=== PATIENT | female | born 1975 | race Caucasian/White ===

== ENCOUNTER 2023-04-15 02:35 | Emergency (ER) | payer BC ==
[2023-04-15] MEDS ORDERED: ALBUTEROL 2.5 MG/3 ML NEB SOL ONE (03:37)
--- NOTE | 2023-04-15 04:27 | EDPHYS ---
Physician Documentation [facility] Name: Angely Vickers Age: 47 yrs Sex: Female : 1975 Arrival Date: 04/15/2023 Time: 02:35 Bed 7 Private MD: ED Physician Iván Powell HPI: 04/15 03:33 This 47 yrs old Female presents to ER via Ambulatory with complaints of Painful Cough, rt Chest Congestion, Fever. 03:33 Patient presents to the ED with cough, congestion, fevers and sore throat since rt Sunday. Went to an urgent care, was told she had strep, was not tested for flu. Was given Toradol, Decadron at that time with modest relief. Was taking penicillin for these presumed strep throat. States the cough has worsened. Denies other acute complaints at this time, symptoms are moderate in severity, no other aggravating alleviating factors. Patient states that the coughing is worse at night, worse when she takes a deep breath.. 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 Last tetanus immunization: not immunized. - Social history:: Smoking status: Patient denies any tobacco usage or history of. - Family history:: not pertinent. ROS: 03:33 Cardiovascular: Negative for chest pain, palpitations, and edema, Abdomen/GI: Negative rt for abdominal pain, nausea, vomiting, diarrhea, and constipation, Skin: Negative for injury, rash, and discoloration, Neuro: Negative for headache, weakness, numbness, tingling, and seizure, Psych: Negative for depression, anxiety, suicide ideation, homicidal ideation, and hallucinations, 03:33 Constitutional: Positive for body aches, fever, 03:33 Respiratory: Positive for cough, Negative for shortness of breath, Exam: 03:33 Constitutional: This is a well developed, well nourished patient who is awake, alert, rt and in no acute distress. Head/Face: Normocephalic, atraumatic. Chest/axilla: Normal chest wall appearance and motion. Nontender with no deformity. No lesions are appreciated. Cardiovascular: Regular rate and rhythm with a normal S1 and S2. No gallops, murmurs, or rubs. Normal PMI, no JVD. No pulse deficits. Respiratory: Lungs have equal breath sounds bilaterally, clear to auscultation and percussion. No rales, rhonchi or wheezes noted. No increased work of breathing, no retractions or nasal flaring. Abdomen/GI: Soft, non-tender, with normal bowel sounds. No distension or tympany. No guarding or rebound. No evidence of tenderness throughout. Skin: Warm, dry with normal turgor. Normal color with no rashes, no lesions, and no evidence of cellulitis. MS/ Extremity: Pulses equal, no cyanosis. Neurovascular intact. Full, normal range of motion. Neuro: Awake and alert, GCS 15, oriented to person, place, time, and situation. Cranial nerves II-XII grossly intact. Motor strength 5/5 in all extremities. Sensory grossly intact. Cerebellar exam normal. Normal gait. Psych: Awake, alert, with orientation to person, place and time. Behavior, mood, and affect are within normal limits. 03:33 ECG was reviewed by the Attending Physician. Vital Signs: 02:56 BP 112 / 78; Pulse 97; Resp 20; Temp 100; Pulse Ox 98% ; Weight 47.17 kg; Height 5 ft. kb3 0 in. ; Pain 8/10; 04:49 BP 109 / 69; Pulse 84; Resp 16; Pulse Ox 99% on R/A; km8 02:56 Body Mass Index 20.31 (47.17 kg, 152.4 cm) kb3 02:56 Pain Scale: Adult kb3 MDM: 02:49 Patient medically screened. rt 04:26 Differential Diagnosis: Other Pneumonia, bronchospasm, influenza. Data reviewed: vital rt signs, nurses notes, lab test result(s), radiologic studies. Independent interpretation of the following test(s) in the Emergency Department X-Ray: My interpretation is No consolidation seen on interpretation of x-ray images. Test considered but Not performed: CT: Do not suspect pulmonary embolism, CT angiogram not indicated. Counseling: I had a detailed discussion with the patient and/or guardian regarding the historical points, exam findings, and any diagnostic results supporting the discharge/admit diagnosis, lab results, radiology results, the need for outpatient follow up, to return to the emergency department if symptoms worsen or persist or if there are any questions or concerns that arise at home. Response to treatment: the patient's symptoms have markedly improved after treatment. 04/15 03:07 Order name: Influenza Screen (a \T\ B); Complete Time: 03:59 rt 04/15 03:07 Order name: Chest Single View XRAY rt EC:33 Rate is 74 beats/min. Rhythm is regular, Normal Sinus Rhythm with Unifocal PVCs. QRS rt [place] is Normal. [place] interval is normal. QRS interval is normal. QT interval is normal. No Q waves. Administered Medications: 03:35 Drug: Albuterol Inhalation 2.5 mg Inhalation once Route: Inhalation; lg3 Disposition Summary: 04/15/23 04:25 Discharge Ordered Notes: Location: Home rt Problem: new rt Condition: Stable rt Diagnosis - Influenza B rt Followup: rt - With: Private Physician - When: 2 - 3 days - Reason: Discharge Instructions: - Discharge Summary Sheet rt - Influenza, Adult, [id number] rt Forms: - Medication Reconciliation Form rt - Thank You Letter rt - Antibiotic Education rt - Prescription Opioid Use rt - Patient Portal Instructions rt - Leadership Thank You Letter rt Signatures: Dispatcher [employer] Katelyn Anguiano, RN RN lg3 Gale Hackett, RN RN kb3 Iván Powell MD MD rt
--- NOTE | 2023-04-15 04:27 | ER ---
Nurse's Notes [facility] Name: Angely Vickers Age: 47 yrs Sex: Female : 1975 Arrival Date: 04/15/2023 Time: 02:35 Bed 7 Private MD: Diagnosis: Influenza B Presentation: 04/15 02:56 Chief complaint: Patient states: Cough, congestion, intermittent fever, sore throat kb3 since Sunday night. Was seen at an Urgent Care on Sun and diagnosed with strep throat. Started on steroids, cough medicine, and PCN. Pt reports she is not feeling much better and her cough has worsened. Coronavirus screen: Vaccine status: Patient reports being unvaccinated. Client denies travel out of the [place] in the last 14 days. Ebola Screen: Patient negative for fever greater than or equal to 101.5 degrees Fahrenheit, and additional compatible Ebola Virus Disease symptoms Patient denies exposure to infectious person. Patient denies travel to an Ebola-affected area in the 21 days before illness onset. Initial Sepsis Screen: Does the patient meet any 2 criteria? No. Patient's initial sepsis screen is negative. Does the patient have a suspected source of infection? No. Patient's initial sepsis screen is negative. Risk Assessment: Do you want to hurt yourself or someone else? Patient reports no desire to harm self or others. Onset of symptoms was April 10, 2023. 02:56 Method Of Arrival: Ambulatory kb3 02:56 Acuity: PANTERA 3 kb3 Triage Assessment: 03:03 General: Appears in no apparent distress. ill, Behavior is calm, cooperative. Pain: kb3 Complains of pain in head, chest, right arm, left arm, right leg and left leg Pain does not radiate. Pain currently is 8 out of 10 on a pain scale. Quality of pain is described as burning, aching. Respiratory: Reports shortness of breath cough that is pain with cough pain with respiration. GI: Patient currently denies abdominal pain, diarrhea, nausea, vomiting. 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 Last tetanus immunization: not immunized. - Social history:: Smoking status: Patient denies any tobacco usage or history of. - Family history:: not pertinent. Screenin:33 [facility] ED Fall Risk Assessment (Adult) History of falling in the last 3 months, lg3 including since admission No falls in past 3 months (0 pts). Abuse screen: Denies threats or abuse. Denies injuries from another. Nutritional screening: No deficits noted. Tuberculosis screening: No symptoms or risk factors identified. Assessment: 03:33 General: Appears in no apparent distress. uncomfortable, Behavior is calm, cooperative. lg3 Pain: Complains of pain in throat, generalized body aches. Neuro: No deficits noted. Lockett Agitation-Sedation Scale (RASS): 0 - Alert and Calm Level of Consciousness is awake, alert, obeys commands, Oriented to person, place, time, situation. Cardiovascular: No deficits noted. Denies chest pain, Capillary refill < 3 seconds Clubbing of nail beds is absent JVD is absent Patient's skin is warm and dry. Respiratory: Reports cough that is pain with cough Airway is patent Trachea midline Respiratory effort is even, unlabored, Respiratory pattern is regular, symmetrical. GI: No deficits noted. No signs and/or symptoms were reported involving the gastrointestinal system. Abdomen is flat, non-distended. : No deficits noted. No signs and/or symptoms were reported regarding the genitourinary system. EENT: No deficits noted. Reports nasal congestion nasal discharge. Derm: No deficits noted. No signs and/or symptoms reported regarding the dermatologic system. Skin is intact, is healthy with good turgor, Skin is dry, Skin is normal, Skin temperature is warm. Musculoskeletal: No deficits noted. Circulation, motion, and sensation intact. Range of motion: intact in all extremities. Vital Signs: 02:56 BP 112 / 78; Pulse 97; Resp 20; Temp 100; Pulse Ox 98% ; Weight 47.17 kg; Height 5 ft. kb3 0 in. ; Pain 8/10; 04:49 BP 109 / 69; Pulse 84; Resp 16; Pulse Ox 99% on R/A; km8 02:56 Body Mass Index 20.31 (47.17 kg, 152.4 cm) kb3 02:56 Pain Scale: Adult kb3 ED Course: 02:42 Patient arrived in ED. gm2 02:42 Iván Powell MD is Attending Physician. rt 03:03 Triage completed. kb3 03:03 Arm band placed on right wrist. Patient placed in an exam room, on a stretcher. kb3 03:33 Katelyn Curiel RN is Primary Nurse. lg3 03:33 Patient has correct armband on for positive identification. Placed in gown. Bed in low lg3 position. Call light in reach. Side rails up X 1. Client placed on continuous cardiac and pulse oximetry monitoring. NIBP monitoring applied. Door closed. Noise minimized. Warm blanket given. Family accompanied patient. 03:33 Initial Neb Treatment Given as ordered Patient was instructed and evaluated on lg3 procedure. Patient maintains SpO2 saturation greater than 95% on room air. 03:35 Influenza Screen (a \T\ B) Sent. lg3 04:10 Chest Single View XRAY In Process Unspecified. EDMS 04:42 Provided Education on: d/c teaching. km8 04:42 No provider procedures requiring assistance completed. km8 04:51 Patient did not have IV access during this emergency room visit. km8 Administered Medications: 03:35 Drug: Albuterol Inhalation 2.5 mg Inhalation once Route: Inhalation; lg3 Medication: 04:42 VIS not applicable for this client. km8 Outcome: 04:25 Discharge ordered by . rt 04:51 Discharged to home ambulatory, with significant other, km8 04:51 Condition: good 04:51 Discharge instructions given to patient, significant other, Instructed on discharge instructions, follow up and referral plans. medication usage, Demonstrated understanding of instructions, follow-up care, medications, Prescriptions given X 1, 04:52 Patient left the ED. km8 Signatures: Dispatcher [employer] EDAK Katelyn Curiel, RN GENESIS lg3 Gale Hackett RN RN 3 Iván Powell MD MD rt Mini Medina gm2 Zandra Nugent RN RN km8
[2023-04-15 05:00] VITALS: TEMP 100
[2023-04-15 05:02] VITALS: BP 109/69; O2SAT 99
--- NOTE | 2023-04-16 12:51 | RAD REPORT ---
EXAM DESCRIPTION: RAD - Chest Single View - 04/15/2023 4:08 am CLINICAL HISTORY: 47 years Female COUGH COMPARISON: None FINDINGS: Lung volumes adequate. Cardiac silhouette is normal in size. No pneumothorax. No large pleural effusion. No focal consolidation. No acute bony finding. Partially visualized lower cervical spine fusion hardware. IMPRESSION: No acute cardiopulmonary findings. Electronically signed by: Zen Alexander MD 04/15/2023 4:32 AM CDT Due to temporary technical issues with the PACS/Fluency reporting system, reports are being signed by the in house radiologists without review as a courtesy to insure prompt reporting. The interpreting radiologist is fully responsible for the content of the report.
== END 2023-04-15 04:52 | disposition home or self-care (01) ==
LOC: ER 02:35
DX: J10.1 Influenza due to other identified influenza virus with other respiratory manifestations (principal); Z28.310 Unvaccinated for COVID-19
CPT/HCPCS: 87804 ×2; 71045; 99284; J7613

== ENCOUNTER 2023-12-25 07:48 | Emergency (ER) | payer BC ==
--- OUTSIDE RECORDS SUMMARY | 2023-12-25 07:53 | XMS REPORT | Clinical Summary ---
Author Name Unknown Organization [facility] Address [address] [place] [address] Care Team Providers Care Tool Designer Apprentice Name Role Phone Romaine Lujan MD Unavailable Caitlyn Bolanos APRN Primary Care Provider [phone] Sarita Kay RN Unavailable [phone] Rubina Smith RN Unavailable [phone] Fausto Chandler MD Unavailable Allergies No known active allergies Medications Medication Sig Dispensed Refills Start Date End Date Status acetaminophen (TYLENOL 8 HOUR ORAL) Take by mouth as needed. Active ibuprofen (ADVIL,MOTRIN) 200 mg tablet Take 1 tablet (200 mg) by mouth as needed. Active diclofenac potassium (CATAFLAM) 50 MG tablet TAKE 1 TABLET BY MOUTH THREE TIMES DAILY NEEDED FOR PAIN 10/12/2023 Active ALPRAZolam (XANAX) 0.25 mg tabletIndications: anxiety Take 1 tablet (0.25 mg) by mouth once. Once before procedure. 10/21/2023 Discontinued( Other/Not Applicable) Active Problems Problem Noted Date Diagnosed Date Estrogen receptor negative status (ER-) 10/21/19 24 HER2-positive carcinoma of breast 10/18/2023 Lobular carcinoma, NOS of lo wer-outer quadrant of breast <Female; Left> Cancer Staging:Clinical stage from 09/20/2023:Stage IA(cT1b, cN0, cM0, G2, ER-, [place]-, HER2+) - Signed by Miriam Loera PA on 10/19/2023 Encounters Date Type Department Care Team Description 12/11/2023 9:00 AM CDT Office Visit [facility] - [facility] [address] [place] [address], [address] [place] [phone] Jennifer Estes MD Lobular carcinoma, NOS of lower-outer quadrant of breast <Female; Left>; HER2-positive carcinoma of breast 12/11/2023 Orders Only [facility] - Surgical Oncology [address] [place] [address], [address] [place] [address] Chun Orantes PA Lobular carcinoma, NOS of lower-outer quadrant of breast <Female; Left> (Primary Dx); Estrogen receptor negative status (ER-) 12/11/2023 Travel 12/10/2023 2:55 PM CDT Ancillary Procedure MD Vasquez [address] [id number] Chun Orantes PA Lobular carcinoma, NOS of lower-outer quadrant of breast <Female; Left> 12/10/2023 Travel 12/06/2023 11:59 PM CDT Anesthesia Event MAIN OR [address] [place] [id number] Jose Hancock III, MD 11/30/2023 1:03 AM CDT Anesthesia Event [facility] [address] [place] [address], [address] [place] [phone] Jey Wu APRN 11/29/2023 9:15 AM CDT POEM Appointments [facility] [address] [place] [address], [address] [place] [address] Chun Orantes PA Lobular carcinoma, NOS of lower-outer quadrant of breast <Female; Left>; HER2-positive carcinoma of breast 11/28/2023 Telephone [facility] - [facility] Oncology [address] [place] [address], [address] [place], [place] [address] [address] Chun Orantes PA 11/27/2023 Telephone [facility] - [facility] [address] [place], [place] [address] [address] Chun Orantes PA 11/21/2023 Orders Only [facility] - [facility]cology [address] [place] [address], [address] [place] [address] Chun Orantes PA Lobular carcinoma, NOS of lower-outer quadrant of breast <Female; Left> (Primary Dx) 11/21/2023 Telephone [facility] [place] [facility] [address] [place] [address], [address] [place] [phone] Rubina Smith I, RN 11/19/2023 Documentation [facility] [place] [facility] [address] [place] [address], [address] [place] [phone] Sheba Martinez MA FMLA 11/08/2023 Telephone [facility] [place] [facility] [address] [place] [address] Mikael Willard, RN 11/07/2023 Orders Only [facility] - [facility] [address] [place] [address] Chun Orantes PA Lobular carcinoma, NOS of lower-outer quadrant of breast <Female; Left> (Primary Dx); HER2-positive carcinoma of breast; Estrogen receptor negative status (ER-) 11/01/2023 Telephone [facility] [place] [facility] [address] [place] [address], [address] [place] [address] Chun Orantes PA 10/31/2023 Orders Only [facility] [place] [facility] [address] [place] [address], [address] [place] [address] Chun Orantes PA Lobular carcinoma, NOS of lower-outer quadrant of breast <Female; Left> (Primary Dx); HER2-positive carcinoma of breast; Estrogen receptor negative status (ER-) 10/30/2023 Telephone [facility] [place] [facility] [address] [place] [phone] Rochelle Salgado MA 10/30/2023 Telephone [facility] [address] [place] [address], [address] [place] [phone] Darcie Ruggiero CGC 10/29/2023 Orders Only [facility] [place] - [facility] [address] [place] [address] Chun Orantes PA Lobular carcinoma, NOS of lower-outer quadrant of breast <Female; Left> (Primary Dx); HER2-positive carcinoma of breast 10/29/2023 Prep for Surgery [facility] [place] - [facility] [address] [place] [address], [address] [place] [address] Chun Orantes PA Lobular carcinoma, NOS of lower-outer quadrant of breast <Female; Left> (Primary Dx); HER2-positive carcinoma of breast; Estrogen receptor negative status (ER-) 10/24/2023 Telephone [facility] [place] [facility] [address] [place] [address], [address] [place] [address] Rubina Smith RN 10/22/2023 10:45 AM CDT Telephone [facility] [address] [place] [address] Miriam Loera PA Malca, Susy, CGC 10/22/2023 Telephone [facility] - Medical Oncology [address] [place] [phone] Aletha Hernandez, GENESIS Follow-up (TNN handoff) 10/19/2023 3:02 PM CDT - 10/19/2023 11:59 PM CDT Hospital Encounter Diagnostic [facility] Center [address] [place] [phone] Miriam Loera PA 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; Left>; HER2-positive carcinoma of breast Discharge Disposition: Home 10/19/2023 3:00 PM CDT Ancillary Procedure [facility] Outpatient Center [address] [facility], 7th [place] [address] Miriam Loera PA 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; Left>; HER2-positive carcinoma of breast 10/19/2023 10:30 AM CDT Consult Breast Center - Multidisciplinary Team [address] [place] [address], [address] [place], [place] [address] [address] Caitlyn Bolanos APRN Strom, Eric, MD Lobular carcinoma, NOS of lower-outer quadrant of breast <Female; Left> (Primary Dx) 10/19/2023 10:00 AM CDT Office Visit Breast Center - Multidisciplinary Team [address] [place] [address], [address] [place] [address] Caitlyn Bolanos APRN Barcenas, Carlos, MD Lobular carcinoma, NOS of lower-outer quadrant of breast <Female; Left> (Primary Dx); HER2-positive carcinoma of breast; Estrogen receptor negative status (ER-) 10/19/2023 9:30 AM CDT Office Visit [facility] Center - Multidisciplinary Team [address] [place] [address], [address] [place] [address] Caitlyn Bolanos APRN Johnson, Helen Margaret, MD 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; Left> (Primary Dx); HER2-positive carcinoma of breast 10/19/2023 8:00 AM CDT Office Visit [facility] - Multidisciplinary Team [address] [place] [address], [address] [place] [address] Caitlyn Bolanos APRN Bomar, Hannah, PA 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> (Primary Dx); 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> 09/20/2023 10:59 AM CDT - 09/20/2023 11:59 PM CDT Hospital Encounter Breast Imaging [address] [place] [address], [address] [place] [address] Caitlyn Bolanos, ADR Mammography abnormal Discharge Disposition: Home 09/20/2023 9:57 AM CDT - 09/20/2023 10:58 AM CDT Hospital Encounter Breast Imaging [address] [place] [address], [address] [place] [address] Caitlyn Bolanos, DAR Mammography abnormal Discharge Disposition: Home 09/20/2023 9:20 AM CDT - 09/20/2023 9:56 AM CDT Hospital Encounter Breast Imaging [address] [place] [address], [address] [place] [address] Mammography abnormal Discharge Disposition: Home 09/20/2023 6:48 AM CDT - 09/20/2023 9:19 AM CDT Hospital Encounter Breast Imaging [address] [place] [address], [address] [place] [address] Caitlyn Bolanos APRN Mammography abnormal; Mass of left breast Discharge Disposition: Home 08/23/2023 [facility] [address] [facility], 2nd [place] [address] Caitlyn Bolanos APRN Mammography abnormal (Primary Dx); Lump in left breast; Mass of left breast 08/21/2023 3:20 PM LICENSING ANALYST Clinical Support Undiagnosed Breast Clinic [address] [place] [address], 5th [place] [address] Caitlyn Bolanos APRN 08/21/2023 1:15 PM LICENSING ANALYST - 08/21/2023 11:59 PM LICENSING ANALYST Hospital Encounter Breast Imaging [address] [place] [address], 5th [place] [address] Caitlyn Bolanos APRN Mammography abnormal Discharge Disposition: Home 08/21/2023 11:56 AM LICENSING ANALYST - 08/21/2023 1:14 PM LICENSING ANALYST Hospital Encounter Breast Imaging [address] [place] [address], 5th [place] [address] Caitlyn Bolanos APRN Mammography abnormal Discharge Disposition: Home 08/21/2023 10:40 AM LICENSING ANALYST Office Visit Undiagnosed Breast Clinic [address] [place] [address], 5th [place] [address] Caitlyn Bolanos APRN Mammography abnormal (Primary Dx) 08/21/2023 Travel 08/16/2023 1:00 PM LICENSING ANALYST NPR MDA PATIENT ACCESS 08/14/2023 8:00 PM LICENSING ANALYST Ancillary Procedure [facility] [address] [place] [address] Caitlyn Bolanos APRN Cancer 08/13/2023 8:10 PM LICENSING ANALYST Ancillary Procedure [facility] [address] [place] [address] Caitlyn Bolanos APRN Cancer 08/13/2023 8:05 PM LICENSING ANALYST Ancillary Procedure [facility] [address] [place] [address] Claudioimgael, Caitlyn, LIVE GAMES DEALER Cancer 08/13/2023 8:00 PM LICENSING ANALYST Ancillary Procedure [facility] [address] [place] [address] Claudioimitchfabrice, Caitlyn, LIVE GAMES DEALER Cancer 08/10/2023 8:40 PM LICENSING ANALYST Ancillary Procedure [facility] [address] [place] [address] Luis Miguel Caitlyn, LIVE GAMES DEALER Cancer 08/10/2023 8:35 PM LICENSING ANALYST Ancillary Procedure [facility] [address] [place] [address] Luis Miguel Caitlyn, LIVE GAMES DEALER Cancer 08/10/2023 8:30 PM LICENSING ANALYST Ancillary Procedure [facility] [address] [place] [address] Luis Miguel Caitlyn, LIVE GAMES DEALER Cancer 08/10/2023 8:25 PM LICENSING ANALYST Ancillary Procedure [facility] [address] [place] [address] Serafin Bolanosanda, LIVE GAMES DEALER Cancer 08/10/2023 8:20 PM LICENSING ANALYST Ancillary Procedure [facility] [address] [place] [address] Luis Miguel Caitlyn, LIVE GAMES DEALER Cancer 08/10/2023 8:15 PM LICENSING ANALYST Ancillary Procedure [facility] [address] [place] [address] Luis Miguel Caitlyn, LIVE GAMES DEALER Cancer 08/10/2023 8:10 PM LICENSING ANALYST Ancillary Procedure [facility] [address] [place] [address] Claudioimgael Caitlyn, LIVE GAMES DEALER Cancer 08/10/2023 8:05 PM LICENSING ANALYST Ancillary Procedure [facility] [address] [place] [address] Claudioimgael Caitlyn, LIVE GAMES DEALER Cancer 08/10/2023 8:00 PM LICENSING ANALYST Ancillary Procedure [facility] [address] [place] [address] Luis Miguel Caitlyn, LIVE GAMES DEALER Cancer 08/09/2023 Orders Only Cancer Prevention Center [address] [facility], 2nd [place] [address] Caitlyn Bolanos APRN Mammography abnormal (Primary Dx) 08/09/2023 Travel after 12/25/2022 Immunizations Name Administration Dates Next Due Tdap 04/21/2005 Surgical History Surgery Date Site/Laterality Comments NECK SURGERY 08/11/2020 In my neck - My CL 5,6,7 TUBAL LIGATION 06/18/2003 - 06/17/2004 SECTION, LOW TRANSVERSE 06/18/2003 - 06/17/2004 CERVIX SURGERY LEEP procedure around [id number]. Medical History Medical History Date Comments Migraine 1996 Have had migrain es since before my 1son was born in Arthritis 4-5 years ago Anxiety Since I was a teenager Family History Medical History Relation Name Comments Cervical cancer Maternal Aunt Linda unknown age of onset Cancer Maternal Grandmother Aubree Laird unknown cancer. Sarcoma Other 5 synovial sarcom atumor on shoulder blade. removed. Relation Name Status Comments Father no info Half-Brother 1 Christopher Alive Half-Brother 2 Fausto Alive Half-Sister 1 Mallika Alive Half-Sister 2 Tamika Alive Half-Sister 3 Itzel Alive Half-Sister 4 Saida (Age 50) GI issues - from complications of surgery Maternal Aunt Linda Alive Maternal Grandfather Maternal Grandmother Aubree Laird Mother (Age 47) Other 1 Alive Other 2 Alive Other 3 Alive Other 4 Alive Other 5 (Age 15) Other 6 Alive Other 7 Alive Other 8 Alive Other 9 Alive Other 10 Alive Other 11 Alive Other 12 Alive Other 13 Alive Other 14 Alive Other 15 Alive Other 16 Alive Other 17 Alive Other 18 Alive Other 19 Alive Other 20 Alive Other 21 Alive Other 22 Alive Other 23 Alive Other 24 Alive Other 25 Alive Other 26 Alive Other 27 Alive Other 28 Alive Other 29 Alive Son 1 Alive Son 2 Alive Son 3 Alive Social History Tobacco Use Types Packs/Day Years Used Date Smoking Tobacco: Never Smokeless Tobacco: Never Tobacco Cessation:Counseling Given: Not Answered Alcohol Use Standard Drinks/Week Comments Not Currently 1 (1 standard drink = 0.6 oz pur e alcohol) 1 glass of wine a month Sex and Gender Information Value Date Recorded Sex Assigned at Female 08/08/2023 4:32 PM LICENSING ANALYST Gender Identity Female 08/08/2023 4:32 PM LICENSING ANALYST Sexual Orientation Straight 08/08/2023 4: 32 PM LICENSING ANALYST Job Start Date Occupation Industry Not on file Not on file Not on file Obstetrics History Para Term AB IAB SAB Ectopic Multiple Livin g Live Births 4 3 Date Outcome GA Total Labor Labor/2nd/3rd Weight Sex Type Anes PTL Marybeth A1 A5 Name Clin Para Para Para Comments Menarche: 13 Parity: 23 OBC: used for 6-7 years Hormonal Therapy: none Fertility treatment: none Last Pap: 2022 (OS) normal Abnormal Pap: yes; HPV (+); precancerous cells; leep procedure Last Jessenia: 12/11/2022 (OS) Last Colon: none Breast Bx: none Bra size: 34B Last Filed Vital Signs Vital Sign Reading Time Taken Comments Blood Pressure 100/64 12/11/2023 9:39 AM CDT Pulse 78 12/11/2023 9:39 AM CDT Temperature 36.6 C (97.8 F) 12/11/2023 9:39 AM CD T Respiratory Rate 18 12/11/2023 9:39 AM CDT Oxygen Saturation 97% 12/11/2023 9:39 AM CDT Inhaled Oxygen Concentration - - Weight 46.4 kg (102 lb 4.7 oz) 12/11/2023 9:39 A M CDT Height 154 cm (5' 0.63") 08/21/2023 9:48 AM LICENSING ANALYST Body Mass Index 19.56 08/21/2023 9:48 AM LICENSING ANALYST Plan of Treatment Health Maintenance Due Date Last Done Comments COVID-19 Vaccine ( season) 2023 Influenza Vaccine 02/17/2024 Procedures Procedure Name Priority Date/Time Associated Diagnosis Comments US BREAST LIMITED LEFT Routine 3:31 PM CDT Lobular carcinoma, NOS of lower-outer quadrant of breast <Female; Left> US CHEST/INFRACLAV Routine 12/10/2023 3: 31 PM CDT Lobular carcinoma, NOS of lower-outer quadrant of breast <Female; Left> .CBC Routine 10/19/2023 3:12 PM CDT 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; 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 ZINVITAE Routine 10/19/2023 3:12 PM CDT 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; 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 APTT Routine 10/19/2023 3:12 PM CDT 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; 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 PROTHROMBIN TIME Routine 10/19/2023 3:12 PM CDT 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; 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 HEMOGLOBIN A1C Routine 10/19/2023 3:12 PM CDT 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; 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 COMPREHENSIVE METABOLIC PANEL Routine 10/19/2023 3:12 PM CDT 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; 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 COMPLETE BLOOD COUNT W/ DIFFERENTIAL Routine 10/19/2023 3:12 PM CDT 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; 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 XR CHEST 2 VW Routine 10/19/2023 2:55 PM CDT 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; 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 EKG, 12-LEAD (SCHEDULED) Routine 10/19/2023 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; 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 SCAN GENETIC TESTING RESULTS 10/19/2023 MDA AP CYTOGENETICS WORKUP Routine 09/20/2023 5:40 PM CDT Mammography abnormal HP CG HER2 FISH INTERPRETATION AND REPORT Routine 09/20/2023 5:40 PM CDT Mammography abnormal STEREOTACTIC BREAST BIOPSY LEFT Routine 09/20/2023 11:28 AM CDT Mammography abnormal MAMMO POST PROCEDURE LEFT Routine 09/20/2023 11:19 AM CDT Mammography abnormal PATHOLOGY BIOPSY INTERPRETATION Routine 09/20/2023 10:46 AM CDT Mammography abnormal MAMMO POST PROCEDURE LEFT Routine 09/20/2023 9:36 AM CDT Mammography abnormal US GUIDED BREAST BIOPSY LEFT Routine 09/20/2023 9:28 AM CDT Mammography abnormal PATHOLOGY BIOPSY INTERPRETATION Routine 09/20/2023 8:58 AM CDT Mammography abnormal US CHEST Routine 08/21/2023 3:47 PM LICENSING ANALYST Mammography abnormal US BREAST COMPLETE LEFT Routine 08/21/2023 3:47 PM LICENSING ANALYST Mammography abnormal MAMMO DIGITAL DIAGNOSTIC BILATERAL W LUIS Routine 08/21/2023 1:17 PM LICENSING ANALYST Mammography abnormal OSI CT CHEST Routine 05/30/2023 12:06 PM LICENSING ANALYST Cancer OSI MRI HEAD Routine 05/30/2023 12:05 PM LICENSING ANALYST Cancer OSI MRI HEAD Routine 05/30/2023 12:05 PM LICENSING ANALYST Cancer OSI CT BRAIN Routine 05/29/2023 12:07 PM LICENSING ANALYST Cancer OSI CT SFT TISS NECK Routine 05/29/2023 12:07 PM LICENSING ANALYST Cancer OSI CT BRAIN Routine 05/29/2023 12:06 PM LICENSING ANALYST Cancer OSI MAMMOGRAPHY UNILATERAL LEFT Routine 12/25/2022 4:05 PM CDT Cancer after 12/25/2022 Results * (ABNORMAL) US Breast Limited Left (12/10/2023 3:31 PM CDT) Anatomical Region Laterality Modality Breast Left Ultrasound 12/10/2023 3:45 PM CDT Impressions 12/10/2023 3:45 PM CDT Known biopsy-proven left breast malignancy, as above. Please, note that the total extent of disease is best appreciated and more accurately evaluated on mammogram given the extensive associated calcifications. BI-RADS Category 6: Known Biopsy Proven Malignancy Narrative 12/10/2023 3:45 PM CDT CLINICAL INDICATION: Patient is a 48 year old female and is seen for left breast cancer. FILMS COMPARED The present examination has been compared to prior imaging studies performed at [facility] on 08/21/2023 and 09/20/2023. Images were obtained in multiple scanning planes. Real-time sonographic imaging of the left breast (limited to less than 4 quadrants) was performed. Real-time sonographic imaging of the left regional siva basins including ultrasound of the chest/mediastinum to evaluate the axillary (level I,II,III) and internal mammary regions was performed. The patient has biopsy-proven left breast malignancy. Per technologist, the patient wished for a repeat ultrasound for re-evaluation of the malignancy. This is not a treatment response study. Please, note that the total extent of disease is best appreciated on mammogram given the extensive calcifications. The index mass in the left breast at 5:00, 4 cm from the nipple, with in situ marker clip measures 0.9 x 0.9 x 0.8 cm (previously 0.6 x 0.7 x 0.8 cm). The minimal increase in size may in part be related to differences in technique. There are postbiopsy changes with associated marker clip at 5:00, 4 to 5 cm from the nipple, consistent with known biopsy-proven malignancy and stereotactic biopsy changes. The total extent of disease is difficult to measure with ultrasound. Vague hypoechoic areas with associated calcifications surrounding the index mass and the post stereotactic biopsy changes measure up to 4.3 cm, but the mammographic extent of disease on prior mammogram was larger and is more accurate. Left Regional Siva Basins: No suspicious axillary levels I, II, III (infraclavicular) or internal mammary lymph node is identified. Procedure Note Flaquito Cox MD - 12/10/2023 CLINICAL INDICATION: Patient is a 48 year old female and is seen for left breast cancer. FILMS COMPARED The present examination has been compared to [facility] and 09/20/2023. Images were obtained in multiple scanning planes. Real-time sonographic imaging of the left breast (limited to less than 4 quadrants) was performed. Real-time sonographic imaging of the leftregional siva basins including ultrasound of the chest/mediastinum to evaluatethe axillary (level I,II,III) and internal mammary regions was performed. The patient has biopsy-proven left breast malignancy. Per technologist,the patient wished for a repeat ultrasound for re-evaluation of themalignancy. This is not a treatment response study. Please, note that the total extent of disease is best appreciated onmammogram given the extensive calcifications. The index mass in the left breast at 5:00, 4 cm from the nipple, with insitu marker clip measures 0.9 x 0.9 x 0.8 cm (previously 0.6 x 0.7 x 0.8 cm).The minimal increase in size may in part be related to differences intechnique. There are postbiopsy changes with associated marker clip at 5:00, 4 to 5cm from the nipple, consistent with known biopsy-proven malignancy andstereotactic biopsy changes. The total extent of disease is difficult to measurewith ultrasound. Vague hypoechoic areas with associated calcificationssurrounding the index mass and the post stereotactic biopsy changes measure up to 4.3cm, but the mammographic extent of disease on prior mammogram was larger andis more accurate. Left Regional Siva Basins: No suspicious axillary levels I, II, III (infraclavicular) or internal mammary lymph node is identified. IMPRESSION: Known biopsy-proven left breast malignancy, as above. Please, note thatthe total extent of disease is best appreciated and more accurately evaluatedon mammogram given the extensive associated calcifications. BI-RADS Category 6: Known Biopsy Proven Malignancy Chun SCHMIDT [facility] US ORDERABLES * (ABNORMAL) US Chest/Infraclav for Breast Ultrasound (Add-on Only) (12/10/2023 3:31 PM CDT) Anatomical Region Laterality Modality Chest Ultrasound 12/10/2023 3:45 PM CDT Impressions 12/10/2023 3:45 PM CDT Known biopsy-proven left breast malignancy, as above. Please, note that the total extent of disease is best appreciated and more accurately evaluated on mammogram given the extensive associated calcifications. BI-RADS Category 6: Known Biopsy Proven Malignancy Narrative 12/10/2023 3:45 PM CDT CLINICAL INDICATION: Patient is a 48 year old female and is seen for left breast cancer. FILMS COMPARED The present examination has been compared to prior imaging studies performed at [facility] on 08/21/2023 and 09/20/2023. Images were obtained in multiple scanning planes. Real-time sonographic imaging of the left breast (limited to less than 4 quadrants) was performed. Real-time sonographic imaging of the left regional siva basins including ultrasound of the chest/mediastinum to evaluate the axillary (level I,II,III) and internal mammary regions was performed. The patient has biopsy-proven left breast malignancy. Per technologist, the patient wished for a repeat ultrasound for re-evaluation of the malignancy. This is not a treatment response study. Please, note that the total extent of disease is best appreciated on mammogram given the extensive calcifications. The index mass in the left breast at 5:00, 4 cm from the nipple, with in situ marker clip measures 0.9 x 0.9 x 0.8 cm (previously 0.6 x 0.7 x 0.8 cm). The minimal increase in size may in part be related to differences in technique. There are postbiopsy changes with associated marker clip at 5:00, 4 to 5 cm from the nipple, consistent with known biopsy-proven malignancy and stereotactic biopsy changes. The total extent of disease is difficult to measure with ultrasound. Vague hypoechoic areas with associated calcifications surrounding the index mass and the post stereotactic biopsy changes measure up to 4.3 cm, but the mammographic extent of disease on prior mammogram was larger and is more accurate. Left Regional Siva Basins: No suspicious axillary levels I, II, III (infraclavicular) or internal mammary lymph node is identified. Procedure Note Flaquito Cox MD - 12/10/2023 CLINICAL INDICATION: Patient is a 48 year old female and is seen for left breast cancer. FILMS COMPARED The present examination has been compared to [facility] 08/21/[facility]23 and 09/20/2023. Images were obtained in multiple scanning planes. Real-time sonographic imaging of the left breast (limited to less than 4 quadrants) was performed. Real-time sonographic imaging of the leftregional siva basins including ultrasound of the chest/mediastinum to evaluatethe axillary (level I,II,III) and internal mammary regions was performed. The patient has biopsy-proven left breast malignancy. Per technologist,the patient wished for a repeat ultrasound for re-evaluation of themalignancy. This is not a treatment response study. Please, note that the total extent of disease is best appreciated onmammogram given the extensive calcifications. The index mass in the left breast at 5:00, 4 cm from the nipple, with insitu marker clip measures 0.9 x 0.9 x 0.8 cm (previously 0.6 x 0.7 x 0.8 cm).The minimal increase in size may in part be related to differences intechnique. There are postbiopsy changes with associated marker clip at 5:00, 4 to 5cm from the nipple, consistent with known biopsy-proven malignancy andstereotactic biopsy changes. The total extent of disease is difficult to measurewith ultrasound. Vague hypoechoic areas with associated calcificationssurrounding the index mass and the post stereotactic biopsy changes measure up to 4.3cm, but the mammographic extent of disease on prior mammogram was larger andis more accurate. Left Regional Siva Basins: No suspicious axillary levels I, II, III (infraclavicular) or internal mammary lymph node is identified. IMPRESSION: Known biopsy-proven left breast malignancy, as above. Please, note thatthe total extent of disease is best appreciated and more accurately evaluatedon mammogram given the extensive associated calcifications. BI-RADS Category 6: Known Biopsy Proven Malignancy Chun SCHMIDT IMG US ORDERABLES * ZINVITAE (10/19/2023 3:12 PM CDT) TASH 10/23/2023 10:19 AM CDT [facility] Comment:Specimen for Genetic testing was obtained, processed and sent out to the Performing Reference Laboratory. Refer to the performing lab for results. Blood Peripheral blood specimen / Unknown Venipuncture / Unknown 10/19/2023 3:12 PM CDT 10/19/2023 3:13 PM CDT Miriam SCHMIDT LAB BLOOD ORDERABLES [facility] [address] [place] [address], [facility] Unless otherwise noted, all lab tests performed by: Division of Pathology and Laboratory Medicine [facility] [place] [address] * (ABNORMAL) .CBC (10/19/2023 3:12 PM CDT) Pathologist [facility] White Blood Cell 6.8 4.1 - 10.5 K/uL 10/19/2023 3:42 PM T [facility] Red Blood Cell 3.91(L) 3.99 - 5.46 M/uL 10/19/2023 3:42 PM T [facility] Hemoglobin 11.4(L) 12.2 - 15.3 g/dL 10/19/2023 3:42 PM T [facility] Hematocrit 35.6(L) 36.4 - 46.8 % 10/19/2023 3:42 PM [facility] Mean Cell Volume 91 82 - 99 fL 10/19/2023 3:42 PM [facility] Mean Cell Hemoglobin 29.2 26.6 - 33.2 pg 10/19/2023 3:42 PM [facility] Mean Cell Hemoglobin Concentration 32.0 31.1 - 35.2 g/dL 10/19/2023 3:42 PM [facility] RDW-SD 50.0(H) 37.5 - 49.7 fL 10/19/2023 3:42 PM T [facility] Red Cell Diameter Width 15.1 11.6 - 15.5 % 10/19/2023 3:42 PM [facility] Platelet 245 160 - 397 K/uL 10/19/2023 3:42 PM [facility] Mean Platelet Volume 10.2 9.1 - 12.6 fL 10/19/2023 3:42 PM [facility] INRBC 0.0 0.0 - 0.1 /100 WBC 10/19/2023 3:42 PM [facility] Comment: The INRBC (instrument NRBC) value reflects the enumeration of nucleated red blood cells contained in a 200uL sample of whole blood analyzed by the instrument. This value may differ from the NRBC value reported in a manual differential, which is based on a 100 cell differential. Neutrophil % 73.7(H) 43.2 - 72.7 % 10/19/2023 3:42 PM [facility] Lymphocyte % 17.9 16.8 - 46.2 % 10/19/2023 3:42 PM [facility] Monocyte % 6.2 5.1 - 12.5 % 10/19/2023 3:42 PM [facility] Eosinophil % 1.3 0.4 - 6.3 % 10/19/2023 3:42 PM [facility] Basophil % 0.6 0.2 - 1.4 % 10/19/2023 3:42 PM [facility] IGRE % 0.3 0.1 - 1.5 % 10/19/2023 3:42 PM [facility] Comment:The IGRE% includes M etamyelocytes, Myelocytes and Promyelocytes. Neutrophil Abs 4.97 1.95 - 7.25 K/uL 10/19/2023 3:42 PM [facility] Lymphocyte Abs 1.21 1.01 - 3.24 K/uL 10/19/2023 3:42 PM [facility] Monocyte Abs 0.42 0.24 - 0.85 K/uL 10/19/2023 3:42 PM [facility] Eosinophil Abs 0.09 0.02 - 0.50 K/uL 10/19/2023 3:42 PM [facility] Basophil Abs 0.04 0.02 - 0.09 K/uL 10/19/2023 3:42 PM [facility] IG Abs 0.02 0.01 - 0.12 K/uL 10/19/2023 3:42 PM CDT [facility] Blood Peripheral blood specimen / Unknown Venipuncture / Unknown 10/19/2023 3:12 PM CDT 10/19/2023 3:14 PM CDT Miriam Evaristo SCHMIDT LAB BLOOD ORDERABLES [facility] [address] [place] [address] * Comprehensive Metabolic Panel (10/19/2023 3:12 PM CDT) Bilirubin Total <0.3 0.0 - 1.2 mg/dL 10/19/2023 5:08 PM T [facility] Comment:Indocyanine Green (I CG) may cause falsely elevated bilirubin results. Total and direct bilirubin must not be measured from samples containing indocyanine green. False elevation of total bilirubin can be seen in patients with IgG concentrations above 28 g/L. eGFR 91 >=60 mL/min/1.7 3 sq. m 10/19/2023 5:08 PM T [facility] Comment: The eGFRcr is calculated with the 2020 CKD-EPI creatinine equation using creatinine, patient's age, and sex for adults 18 years of age and older. Other factors, especially muscle mass, may affect accuracy and need to be considered. According to the Kidney Disease: Improving Global Outcomes (KDIGO) CKD Work Group 2012 Clinical Practice Guideline, chronic kidney disease (CKD) is defined as the abnormalities of kidney structure or function, present for more than 3 months, with implications for health. CKD should be classified by cause, GFR category, and albuminuria category. KDIGO guidelines provide the following GFR categories. Stage / Description / GFR mL/min/1.73 m2: G1* / Normal or high / >= 90 G2* / Mildly decreased / 60-89 G3a / Mildly to moderately decreased / 45-59 G3b / Moderately to severely decreased / 30-44 G4 / Severely decreased / 15-29 G5 / Kidney failure / <15 *In the absence of evidence of kidney damage, neither G1 nor G2 fulfill criteria for CKD. Tot Protein 7.2 6.4 - 8.3 gm/dL 10/19/2023 5:08 PM [facility] Calcium Level Total 10.0 8.2 - 10.2 mg/dL 10/19/2023 5:08 PM [facility] Alkaline Phosphatase 69 35 - 104 U/L 10/19/2023 5:08 PM [facility] Albumin Level 4.4 3.5 - 5.2 gm/dL 10/19/2023 5:08 PM [facility] AST 17 <=32 U/L 10/19/2023 5:08 PM [facility] ALT 7 <=33 U/L 10/19/2023 5:08 PM [facility] Sodium Level 140 136 - 145 mmol/L 10/19/2023 5:08 PM [facility] Potassium Level 4.4 3.4 - 4.5 mmol/L 10/19/2023 5:08 PM [facility] Chloride 104 98 - 107 mmol/L 10/19/2023 5:08 PM [facility] CO2 26 22 - 29 mmol/L 10/19/2023 5:08 PM [facility] Anion Gap 10 4 - 14 mmol/L 10/19/2023 5:08 PM [facility] Creatinine 0.81 0.51 - 0.95 mg/dL 10/19/2023 5:08 PM [facility] BUN 9 6 - 23 mg/dL 10/19/2023 5:08 PM [facility] Glucose Level 91 70 - 99 mg/dL 10/19/2023 5:08 PM [facility] Comment: Effective 01/12/16, the glucose reference intervals have been updated based on [place] Diabetes Association guidelines (Standards of Medical Care in Diabetes 2016. Diabetes Care 2016; 39: S13-S22). Fasting blood glucose: Normal: 70-99 mg/dL Impaired fasting glucose (increased risk for diabetes or pre-diabetes): 100-125 mg/dL Diabetes mellitus: >/=126 mg/dL Random blood glucose: Normal: 70-199 mg/dL Note: Random glucose >100 mg/dL is associated with increased risk for diabetes. Blood Peripheral blood specimen / Unknown Venipuncture / Unknown 10/19/2023 3:12 PM CDT 10/19/2023 3:14 PM CDT Miriam Evaristo SCHMIDT LAB BLOOD ORDERABLES Performing Organization Address City/[facility]/ZIP Co de Phone Number [facility] [address] [place] [address]. [address] [place] [address] * Partial Thromboplastin Time (10/19/2023 3:12 PM CDT) Activated PTT 30.1 24.1 - 35.5 second(s) 10/19/2023 3:39 PM CDT [facility] Blood Peripheral blood specimen / Unknown Venipuncture / Unknown 10/19/2023 3:12 PM CDT 10/19/2023 3:14 PM CDT Miriam Evaristo [facility] LAB BLOOD ORDERABLES Performing Organization Address [facility] Co de Phone Number [address] [place] [address] * Prothrombin Time with INR (10/19/2023 3:12 PM CDT) Prothrombin Time 12.4 11.9 - 14.5 second(s) 10/19/2023 3:39 PM CDT [facility] International Normalization Ratio 0.96 0.87 - 1.12 10/19/2023 3:39 PM CDT [facility] Blood Peripheral blood specimen / Unknown Venipuncture / Unknown 10/19/2023 3:12 PM CDT 10/19/2023 3:14 PM CDT Miriam Evaristo SCHMIDT LAB BLOOD ORDERABLES Performing Organization Address City/[facility]/ZIP Co de Phone Number [address] [place] [address] * Hemoglobin A1c (10/19/2023 3:12 PM CDT) Hemoglobin A1c 5.1 4.3 - 5.6 % 10/19/2023 4:01 PM CDT [facility] Blood Peripheral blood specimen / Unknown Venipuncture / Unknown 10/19/2023 3:12 PM CDT 10/19/2023 3:14 PM CDT Narrative [facility] - 10/19/2023 4:01 PM CDT HbA1c values >=6.5% are diagnostic of diabetes mellitus. Diagnosis should be confirmed by repeat testing. Therapeutic Action suggested: >8.0% HbA1c; Goal of therapy: <7.0% HbA1c Miriam Evaristo SCHMIDT LAB BLOOD ORDERABLES [facility] Unless otherwise noted, all lab tests performed by: Division of Pathology and Laboratory Medicine [address] [place] [id number] * X-ray Chest 2 Views (10/19/2023 2:55 PM CDT) Anatomical Region Laterality Modality Chest Digital Radiogra phy 10/19/2023 3:01 PM CDT Impressions 10/19/2023 3:02 PM CDT No acute cardiopulmonary disease. No sign of metastatic disease in the chest. ACTIONABLE ITEMS/RECOMMENDATIONS*: None. *An Actionable Finding is a finding that may be unrelated to the original reason for imaging but potentially actionable, meaning further investigation may be necessary. The Actionable Findings Vigilance Unit (AFVU) assists medical providers with responding to additional radiologic findings that are unexpected and potentially actionable. Narrative 10/19/2023 3:02 PM CDT FULL RESULT: Examination: XR CHEST 2 VW on 10/19/2023 2:55 PM. 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 Lungs/Pleura/Mediastinum: There are no noncalcified pulmonary nodules. No acute airspace opacities. No enlarged hilar mediastinal nodes. The cardiac silhouette is not enlarged. No pleural effusions. Procedure Note Babak Youssef MD - 10/19/2023 FULL RESULT: Examination: XR CHEST 2 VW on 10/19/2023 2:55 PM. 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 Lungs/Pleura/Mediastinum: There are no noncalcified pulmonary nodules. Noacute airspace opacities. No enlarged hilar mediastinal nodes. The cardiac silhouette is notenlarged. No pleural effusions. IMPRESSION: No acute cardiopulmonary disease. No sign of metastatic disease in thechest. ACTIONABLE ITEMS/RECOMMENDATIONS*: None. *An Actionable Finding is a finding that may be unrelated to the originalreason for imaging but potentially actionable, meaning furtherinvestigation may be necessary. The Actionable Findings Vigilance Unit(AFVU) assists medical providers with responding to additional radiologicfindings that are unexpected and potentially actionable. Miriam SCHMIDT IMG DIAGNOSTIC IMAGI NG ORDERABLES * EKG, 12-Lead (Scheduled) (10/19/2023) Miriam SCHMIDT ECG ORDERABLES [facility] IECG * Scan Genetic Testing Results (10/19/2023) Narrative 10/19/2023 Ordered by an unspecified provider. Provider Not In System SCANNED ORDERS * Cytogenetics Workup (09/20/2023 5:40 PM CDT) Triage Comments 11/28/2023 2:26 PM CDT [facility] Tissue (Breast, Left) Non-blood Collection / Unknown 09/20/2023 5:40 PM CDT 09/24/2023 5:40 PM CDT Caitlyn Bolanos APRN [facility] AP BIOMARKER ORDERABLES [facility] * CG HER2 FISH Interpretation and Report (09/20/2023 5:40 PM CDT) Pathologist [facility] Clinical Indication INVASIVE MAMMARY CARCINOMA II WITH PREDOMINANT MICROPAPILLARY FEATURES 09/27/2023 3:05 PM CDT [facility] Processed Specimen Type FFPE 09/27/2023 3:05 PM CDT [facility] Source Material [id number] 09/27/2023 3:05 PM CDT [facility] Tumor Block A1 09/27/2023 3:05 PM CDT [facility] HER2 Tissue FISH SUMMARY: THIS IS A POSITIVE RESULT FOR HER2 AMPLIFICATION. Slide adequacy is satisfactory. Sixty tumor nuclei were counted. HER2/CEP17 ratio: 2.48. Average HER2 signals/cells: 11.88. Average CEP17 signals/cells: 4.78. FISH group: 1. Immunohistochemist ry (IHC) result: 2+. Sorority Supervisor images have been archived. INTERPRETATION: Tissue section of the invasive mammary carcinoma with predominant micropapillary features was evaluated for HER2 gene amplification by interphase fluorescence in situ hybridization (FISH) technique using the An[employer]iva HER-2/raul DNA Probe Kit (LSI HER-/raul Spectrum [place], CEP17 Spectrum Green). The tumor cells demonstrated amplification of the HER2 gene copy levels. The LSI HER-2/raul probe is specific for the HER2 gene locus (17q11.2-q12) and the CEP17 DNA probe is specific for the alpha satellite DNA sequence at the centromeric region of chromosome 17 (17p11.1-q11.2). Automated fluorescence signal analysis was performed through the FDA-approved HighlightCam image analysis system. The copy numbers for HER2 and chromosome 17 centromere listed above were calculated per nuclei. This interpretation is based upon [place] Society of Clinical Oncology/College of [place] Pathologist's criteria (2018 updated guidelines) for HER2 testing in breast cancer. The reference ranges for other tumor types have not been established. The following ASCO/CAP 2018 guideline has been established for HER2 testing: Group 1 Group 2 Group 3 Group 4 Group 5 Ratio >=2 Ratio >=2 Ratio <2 Ratio <2 Ratio <2 >=4 HER2 <4 HER2 >=6 HER2 >=4 and <6 HER2 <4 HER2 signals/cell signals/cell signals/cell signals/cell signals/cell HER2 Positive HER2 Negative Dual Probe Assay Group 1 Group 2 AND concurrent IHC 0-1+ or 2+ Group 2 AND concurrent IHC 3+ Group 3 AND concurrent IHC 0-1+ Group 3 AND concurrent IHC 2+ or 3+ Group 4 AND concurrent IHC 0-1+ or 2+ Group 4 AND concurrent IHC 3+ Group 5 09/27/2023 3:05 PM CDT [facility] HER2 FISH References 1. Agata Betancourt Hicks DG, et al: Reply to Diego Hayward. J Clin Oncol 33:1302-4, 2014 2. Agata Betancourt, Montse HARPER, et al: Human Epidermal Growth Factor Receptor 2 Testing in Breast Cancer: [place] Society of Clinical Oncology/College of [place] Pathologists Clinical Practice Guideline Focused Update. J Clin Oncol 36:2105-22 2018 3. Agata Betancourt Hicks DG, et al: Recommendations for Human Epidermal Growth Factor Receptor 2 Testing in Breast Cancer: [place] Society of Clinical Oncology/College of [place] Pathologists Clinical Practice Guideline Update. J Clin Oncol 31:9512-8040, 2013 09/27/2023 3:05 PM CDT [facility] HER2 FISH Disclaimer This test has been cleared and approved for specific uses by the U.S. Food and Drug Administration. Its system is operating within the performance specifications stated in the product insert. Breast specimens used for determining Her2/raul amplification are placed in 10% neutral buffered formalin within one hour after biopsy or resection, and fixed for at least 6 hours and not more than 72 hours. If the specimen was not initially processed at [facility], fixation time may be found in the accompanying pathology report. If these conditions are not met, a negative result is recommended to be verified on an alternative sample if available. 09/27/2023 3:05 PM CDT [facility] Pathologist Signature . 09/27/2023 3:05 PM CDT [facility] Tissue (Breast, Left) Non-blood Collection / Unknown 09/20/2023 5:40 PM CDT 09/24/2023 5:40 PM CDT Caitlyn Bolanos APRN [facility] HP CYTOGENETI CS (HP CG) CYTO[facility] Lab [address] [place] [address] [facility] * Stereotactic Breast Biopsy - Left (09/20/2023 11:28 AM CDT) Anatomical Region Laterality Modality Breast Left Mammography 09/20/2023 1:03 PM CDT Addenda Addendum by Yamel Rogers MD on 09/24/2023 8:05 PM CDT ADDENDED REPORT 09/24/2023 Addendum: Addendum is for final pathology: A. Left breast, calcifications, 6:00, stereotactic core biopsy: DUCTAL CARCINOMA IN SITU (DCIS), HIGH NUCLEAR GRADE, SOLID PATTERN WITH COMEDONECROSIS, LOBULAR INVOLVEMENT, AND MULTIPLE FOCI OF MICROINVASION. (SEE COMMENT) SUSPICIOUS FOR LYMPHOVASCULAR INVASION. Microcalcifications associated with DCIS. The malignant result is concordant with imaging. Recommend surgical/oncology consultation. The above was emailed to ordering clinician Sujata Bolanos on 09/25/23 by institutional email. Impressions 09/20/2023 1:03 PM CDT Technically successful stereotactic biopsy of the left breast. An addendum will be issued once the final pathology result is available and reviewed. Narrative 09/20/2023 1:03 PM CDT STEREOTACTIC BIOPSY EXAMINATION: Left Breast Stereotactic Vacuum-Assisted Core Needle Biopsy with Marker Clip Placement and Post Biopsy Mammograms, 09/20/2023. CLINICAL HISTORY: 48-year-old woman presenting for stereotactic biopsy. INDICATION: Calcifications on prior imaging. COMPARISON: Mammogram from 08/21/23. Primary Proceduralist: Dr. Yamel Rogers Cyanide Pot Tender(s): None PROCEDURE: The procedure and its risks, benefits, and alternatives were explained in detail to the patient, who agreed to proceed and signed an informed consent form. All questions were answered. The patient was brought to the stereotactic biopsy suite, and a pre-procedure time-out was performed. The patient was properly positioned prone on the Hologic stereotactic table. A digital tomosynthesis acquisition was obtained in the CC projection. The skin was cleansed with ChloraPrep. Local anesthesia was achieved with a total of 2ml 1% Lidocaine and 15ml of 1% Lidocaine with Epinephrine. Site 1: The lesion in question was identified in the left breast at 6 o'clock position. Biopsy was performed with a 9-gauge vacuum assisted device, and 12 passes were performed. The approach was inferior to superior. The specimen was radiographed. Satisfactory specimen radiography was obtained. Total number of cores with calcifications: 12 A marker clip (SecurMark T shape) was deployed into the biopsy cavity. At the conclusion of the procedure, pressure was held until cessation of bleeding. The skin incision was closed with Steri-strips and covered with a bandage. A post procedural left mammogram was then performed to document clip placement. The clip is within the biopsy cavity. Estimated Blood Loss: Minimal Specimen(s) Removed: Yes Immediate Complications: None Post-procedure diagnosis: Calcification Disposition: The patient was discharged from Breast Imaging to home in good condition. Procedure Note Yamel Rogers MD - 09/20/2023 STEREOTACTIC BIOPSY EXAMINATION: Left Breast Stereotactic Vacuum-Assisted Core Needle Biopsywith Marker Clip Placement and Post Biopsy Mammograms, 09/20/2023. CLINICAL HISTORY: 48-year-old woman presenting for stereotactic biopsy. INDICATION: Calcifications on prior imaging. COMPARISON: Mammogram from 08/21/23. Primary Proceduralist: Dr. Yamel Rogers Cyanide Pot Tender(s): None PROCEDURE: The procedure and its risks, benefits, and alternatives were explained in detail to the patient, who agreed to proceed and signed aninformed consent form. All questions were answered. The patient was brought tothe stereotactic biopsy suite, and a pre-procedure time-out was performed.The patient was properly positioned prone on the Hologic stereotactic table.A digital tomosynthesis acquisition was obtained in the CC projection. Theskin was cleansed with ChloraPrep. Local anesthesia was achieved with a totalof 2ml 1% Lidocaine and 15ml of 1% Lidocaine with Epinephrine. Site 1: The lesion in question was identified in the left breast at 6o'clock position. Biopsy was performed with a 9-gauge vacuum assisted device, and12 passes were performed. The approach was inferior to superior. The specimenwas radiographed. Satisfactory specimen radiography was obtained. Totalnumber of cores with calcifications: 12 A marker clip (SecurMark T shape) was deployed into the biopsy cavity. Atthe conclusion of the procedure, pressure was held until cessation ofbleeding. The skin incision was closed with Steri-strips and covered with a bandage. A post procedural left mammogram was then performed to document clipplacement. The clip is within the biopsy cavity. Estimated Blood Loss: Minimal Specimen(s) Removed: Yes Immediate Complications: None Post-procedure diagnosis: Calcification Disposition: The patient was discharged from Breast Imaging to home ingood condition. IMPRESSION: Technically successful stereotactic biopsy of the left breast. An addendum will be issued once the final pathology result is availableand reviewed. [facility] MAM[facility] O RDERABLES * Post Procedure Mammogram Left (09/20/2023 11:19 AM CDT) Only the most recent of2 resultswithin the time period is included. Anatomical Region Laterality Modality Breast Left Mammography 09/20/2023 3:49 PM CDT Narrative 09/20/2023 3:49 PM CDT Examination: Post Procedure Mammogram Left 09/20/2023. Clinical Indication: Patient is a 48 years old female and is seen for post procedure mammogram. Findings: See Stereotactic breast biopsy report done same date. Procedure Note Yamel Rogers MD - 09/20/2023 Examination: Post Procedure Mammogram Left 09/20/2023. Clinical Indication: Patient is a 48 years old female and is seen forpost procedure mammogram. Findings: See Stereotactic breast biopsy report done same date. Caro Centergael [facility] MAMMOGRAPHY O RDERABLES * Pathology Biopsy Interpretation (09/20/2023 10:46 AM CDT) Only the most recent of2 resultswithin the time period is included. Submitted Clinical History Mammography abnormal [R92.8] 09/24/2023 2:42 PM CDT [facility] Diagnosis A. Left breast, calcifications, 6:00, stereotactic core biopsy: DUCTAL CARCINOMA IN SITU (DCIS), HIGH NUCLEAR GRADE, SOLID PATTERN WITH COMEDONECROSIS, LOBULAR INVOLVEMENT, AND MULTIPLE FOCI OF MICROINVASION. (SEE COMMENT) SUSPICIOUS FOR LYMPHOVASCULAR INVASION. Microcalcifications associated with DCIS. HXS/FSC 09/24/2023 2:42 PM CDT [facility] Comment Immunohistochemical stains with pancytokeratin, p63, and SMMS performed on A1, A2, A4, and A6 support the above diagnosis. Please refer to concurrent biopsy [id number]. 09/24/2023 2:42 PM CDT [facility] Gross Description A: Breast, left, : 12 cores of fibroadipose tissue ranging from 1.5 x 0.5 cm -3.0 x 0.4 cm. All 12 of the cores were separately submitted in a pink cassette. SECTION CODE: A1-A6, each contain two cores from cassette. GM Cold Ischemia and Fixation Times Meet requirements specified in latest version of the ASCO/CAP guidelines. Cold ischemia time: 4m Fixative: 10% Neutral Buffered Formalin In fixative: 09/20/2023 10:50 AM Fixation time: > 6 hours and < 72 hours 09/24/2023 2:42 PM CDT [facility] Biomarker Block(s) N/A 09/24/2023 2:42 PM CDT [facility] Disclaimer "Some tests reported here may have been developed and performance characteristics determined by [facility]. These tests have not been specifically cleared or approved by the U.S. Food and Drug Administration. If applicable, controls were reviewed and showed appropriate reactivity." 09/24/2023 2:42 PM CDT [facility] Tissue (Breast, Left) 09/20/2023 10:46 AM CDT 09/20/2023 11:27 AM CDT Caitlyn Bolanos APRN LAB PATHOLOGY ORD ERABLES [facility] [address] [place] [address] [place] [address], [place] * US Guided Breast Biopsy Left (09/20/2023 9:28 AM CDT) Anatomical Region Laterality Modality Breast Left Ultrasound 09/20/2023 9:41 AM CDT Impressions 09/20/2023 9:46 AM CDT Technically successful ultrasound core needle biopsy and clip placement (coil clip) of the suspicious left breast mass at the 5 o'clock position, 3 cm from the nipple. ACR BI-RADS Category: 4. Suspicious. Final management recommendations will be given in an addendum when final biopsy results are available. Narrative 09/20/2023 9:46 AM CDT FULL RESULT: Examination: US GUIDED BREAST BIOPSY LEFT 09/20/2023 9:28 AM Clinical History: 48Yyear-old woman with left breast mass presenting for ultrasound-guided biopsy. Indication: Breast mass Comparison: Breast ultrasound: 08/21/2023 Technique: Targeted sonographic imaging of left breast at the 5 o'clock position was performed. Images were obtained in multiple scanning planes. Findings: The suspicious left breast mass at the 5 o'clock position, 3 cm from the nipple, was identified and targeted for core needle biopsy. Procedure(s): Ultrasound-Guided Breast Biopsy and Breast Clip Placement - Left Attending Radiologist: Jean. Fellow: None. Consent: The procedure(s), risks, indications, and alternatives were explained. All questions were answered and informed consent was obtained. Procedure(s) in Detail: A time-out was performed prior to the start of the procedure and the correct patient, procedure, presence of consent, site, and side were confirmed with all members of the team. The skin was prepped in the usual sterile fashion with chlorhexidine. Lidocaine 1 percent was administered for local anesthesia. Biopsy of left breast mass at the 5 o'clock position was performed under direct sonographic guidance using a 14-gauge needle. Number of biopsy passes: 4. A coil clip was then placed. Pressure was held at the procedure site until cessation of bleeding, and the skin was covered with a bandage. Post-procedure Mammography: Post-procedure mammography was performed and shows the marker clip in expected position. Estimated Blood Loss: Minimal. Specimen(s) Removed: Yes Immediate Complications: None. Post-procedure diagnosis: Breast mass. Disposition: The patient tolerated the procedure well and was discharged home in good condition. Procedure Note Alejandra Pena MD - 09/20/2023 FULL RESULT: Examination: US GUIDED BREAST BIOPSY LEFT 09/20/2023 9:28 AM Clinical History: 48Yyear-old woman with left breast mass presenting forultrasound-guided biopsy. Indication: Breast mass Comparison: Breast ultrasound: 08/21/2023 Technique: Targeted sonographic imaging of left breast at the 5 o'clockposition was performed. Images were obtained in multiple scanningplanes. Findings: The suspicious left breast mass at the 5 o'clock position, 3 cm from thenipple, was identified and targeted for core needle biopsy. Procedure(s): Ultrasound-Guided Breast Biopsy and Breast Clip Placement - Left Attending Radiologist: Jean. Fellow: None. Consent: The procedure(s), risks, indications, and alternatives wereexplained. All questions were answered and informed consent wasobtained. Procedure(s) in Detail: A time-out was performed prior to the start of theprocedure and the correct patient, procedure, presence of consent, site,and side were confirmed with all members of the team. The skin was preppedin the usual sterile fashion with chlorhexidine. Lidocaine 1 percent wasadministered for local anesthesia. Biopsy of left breast mass at the 5o'clock position was performed under direct sonographic guidance using f66-[id number] needle. Number of biopsy passes: 4. A coil clip was thenplaced. Pressure was held at the procedure site until cessation of bleeding, andthe skin was covered with a bandage. Post-procedure Mammography: Post-procedure mammography was performed andshows the marker clip in expected position. Estimated Blood Loss: Minimal. Specimen(s) Removed: Yes Immediate Complications: None. Post-procedure diagnosis: Breast mass. Disposition: The patient tolerated the procedure well and was dischargedhome in good condition. IMPRESSION: Technically successful ultrasound core needle biopsy and clip placement(coil clip) of the suspicious left breast mass at the 5 o'clock position,3 cm from the nipple. ACR BI-RADS Category: 4. Suspicious. Final management recommendations will be given in an addendum when finalbiopsy results are available. Caitlyn Bolanos APRN IMTiff US ORDERABLES * US Chest for Breast Ultrasound (Add-on Only) (08/21/2023 3:47 PM LICENSING ANALYST) Anatomical Region Laterality Modality Chest Ultrasound 08/21/2023 4:03 PM LICENSING ANALYST Addenda Addendum by Alejandra Pena MD on 09/26/2023 10:32 AM CDT FINAL PATHOLOGY RESULTS: Left breast, 0.8 cm mass, 5:00, 4 cm from nipple, ultrasound-guided core biopsy: INVASIVE MAMMARY CARCINOMA WITH PREDOMINANT MICROPAPILLARY FEATURES, INTERMEDIATE NUCLEAR GRADE, ISHA HISTOLOGIC GRADE 2. Final pathology results are malignant and concordant with imaging findings. Pathology results from same day stereotactic guided biopsy revealed DCIS. The patient has biopsy proven invasive mammary carcinoma/ DCIS. Recommend surgical/oncology consultation. These findings were communicated through institutional email to Caitlyn Vega APRN on 09/26/2023. Impressions 08/22/2023 9:43 AM LICENSING ANALYST 1. Suspicious mass identified in the left breast at 5 o'clock position. Even though stereotactic biopsy has been recommended for calcifications of the mammogram, ultrasound-guided biopsy of this mass is recommended to rule out an invasive component. 2. No suspicious lymph nodes identified in the left regional siva basins. ACR BI-RADS Category: 5. Highly suspicious for malignancy. Ultrasound-guided core needle biopsy of the mass at 5 o'clock position is recommended. Stereotactic biopsy has been recommended for the calcifications seen on mammography. Narrative 08/22/2023 9:43 AM LICENSING ANALYST FULL RESULT: Examination: US BREAST COMPLETE LEFT, US CHEST 08/21/2023 3:47 PM Clinical History: 48-year-old with abnormal mammogram. Indication: Abnormal mammogram Comparison: Mammogram performed earlier in the day. Technique: Real-time sonographic imaging of the left breast (including all 4 quadrants and retroareolar region) was performed. Ultrasound imaging was performed of the left axilla (levels I, II, and III) and left chest/mediastinum (to evaluate the internal mammary lymph nodes). Images were obtained in multiple scanning planes. Findings: There is a heterogeneous area with dilated ducts filled with calcifications at the 5 - 6:00 region corresponding with the calcifications seen on previous mammogram. This area measures 3.5 x 0.5 x 3.5 cm. However, this area is better delineated mammographically. Within this area there is an irregular hypoechoic mass measuring 0.8 x 0.6 x 0.7 cm at 5 o'clock position, 3.6 cm from the nipple. This mass may represent an invasive component and ultrasound-guided core needle biopsy is recommended. This was discussed with the patient at the time of examination and the patient prefers this biopsy to be performed on the same day the stereotactic biopsy is scheduled. Left regional siva basins: No suspicious axillary (level I, II & III) or internal mammary lymphadenopathy is noted. Procedure Note Carolyn Mederos MD / Alejandra Pena MD - 08/22/2023 FULL RESULT: Examination: US BREAST COMPLETE LEFT, US CHEST 08/21/2023 3:47 PM Clinical History: 48-year-old with abnormal mammogram. Indication: Abnormal mammogram Comparison: Mammogram performed earlier in the day. Technique: Real-time sonographic imaging of the left breast (including all4 quadrants and retroareolar region) was performed. Ultrasound imaging wasperformed of the left axilla (levels I, II, and III) and leftchest/mediastinum (to evaluate the internal mammary lymph nodes). Imageswere obtained in multiple scanning planes. Findings: There is a heterogeneous area with dilated ducts filled withcalcifications at the 5 - 6:00 region corresponding with thecalcifications seen on previous mammogram. This area measures 3.5 x 0.5 x3.5 cm. However, this area is better delineated mammographically. Withinthis area there is an irregular hypoechoic mass measuring 0.8 x 0.6 x 0.7cm at 5 o'clock position, 3.6 cm from the nipple. This mass may representan invasive component and ultrasound-guided core needle biopsy isrecommended. This was discussed with the patient at the time ofexamination and the patient prefers this biopsy to be performed on thesame day the stereotactic biopsy is scheduled. Left regional siva basins: No suspicious axillary (level I, II & III) orinternal mammary lymphadenopathy is noted. IMPRESSION: 1. Suspicious mass identified in the left breast at 5 o'clock position.Even though stereotactic biopsy has been recommended for calcifications ofthe mammogram, ultrasound-guided biopsy of this mass is recommended torule out an invasive component. 2. No suspicious lymph nodes identified in the left regional nodalbasins. ACR BI-RADS Category: 5. Highly suspicious for malignancy. Ultrasound-guided core needle biopsy of the mass at 5 o'clock position isrecommended. Stereotactic biopsy has been recommended for thecalcifications seen on mammography. Caitlyn Bolanos APRN IMG US ORDERABLES * US Breast Complete Left (08/21/2023 3:47 PM LICENSING ANALYST) Anatomical Region Laterality Modality Breast Left Ultrasound 08/21/2023 4:03 PM LICENSING ANALYST Addenda Addendum by Alejandra Pena MD on 09/26/2023 10:32 AM CDT FINAL PATHOLOGY RESULTS: Left breast, 0.8 cm mass, 5:00, 4 cm from nipple, ultrasound-guided core biopsy: INVASIVE MAMMARY CARCINOMA WITH PREDOMINANT MICROPAPILLARY FEATURES, INTERMEDIATE NUCLEAR GRADE, ISHA HISTOLOGIC GRADE 2. Final pathology results are malignant and concordant with imaging findings. Pathology results from same day stereotactic guided biopsy revealed DCIS. The patient has biopsy proven invasive mammary carcinoma/ DCIS. Recommend surgical/oncology consultation. These findings were communicated through institutional email to Caitlyn Vega APRN on 09/26/2023. Impressions 08/22/2023 9:43 AM LICENSING ANALYST 1. Suspicious mass identified in the left breast at 5 o'clock position. Even though stereotactic biopsy has been recommended for calcifications of the mammogram, ultrasound-guided biopsy of this mass is recommended to rule out an invasive component. 2. No suspicious lymph nodes identified in the left regional siva basins. ACR BI-RADS Category: 5. Highly suspicious for malignancy. Ultrasound-guided core needle biopsy of the mass at 5 o'clock position is recommended. Stereotactic biopsy has been recommended for the calcifications seen on mammography. Narrative 08/22/2023 9:43 AM LICENSING ANALYST FULL RESULT: Examination: US BREAST COMPLETE LEFT, US CHEST 08/21/2023 3:47 PM Clinical History: 48-year-old with abnormal mammogram. Indication: Abnormal mammogram Comparison: Mammogram performed earlier in the day. Technique: Real-time sonographic imaging of the left breast (including all 4 quadrants and retroareolar region) was performed. Ultrasound imaging was performed of the left axilla (levels I, II, and III) and left chest/mediastinum (to evaluate the internal mammary lymph nodes). Images were obtained in multiple scanning planes. Findings: There is a heterogeneous area with dilated ducts filled with calcifications at the 5 - 6:00 region corresponding with the calcifications seen on previous mammogram. This area measures 3.5 x 0.5 x 3.5 cm. However, this area is better delineated mammographically. Within this area there is an irregular hypoechoic mass measuring 0.8 x 0.6 x 0.7 cm at 5 o'clock position, 3.6 cm from the nipple. This mass may represent an invasive component and ultrasound-guided core needle biopsy is recommended. This was discussed with the patient at the time of examination and the patient prefers this biopsy to be performed on the same day the stereotactic biopsy is scheduled. Left regional siva basins: No suspicious axillary (level I, II & III) or internal mammary lymphadenopathy is noted. Procedure Note Carolyn Mederos MD / Alejandra Pena MD - 08/22/2023 FULL RESULT: Examination: US BREAST COMPLETE LEFT, US CHEST 08/21/2023 3:47 PM Clinical History: 48-year-old with abnormal mammogram. Indication: Abnormal mammogram Comparison: Mammogram performed earlier in the day. Technique: Real-time sonographic imaging of the left breast (including all4 quadrants and retroareolar region) was performed. Ultrasound imaging wasperformed of the left axilla (levels I, II, and III) and leftchest/mediastinum (to evaluate the internal mammary lymph nodes). Imageswere obtained in multiple scanning planes. Findings: There is a heterogeneous area with dilated ducts filled withcalcifications at the 5 - 6:00 region corresponding with thecalcifications seen on previous mammogram. This area measures 3.5 x 0.5 x3.5 cm. However, this area is better delineated mammographically. Withinthis area there is an irregular hypoechoic mass measuring 0.8 x 0.6 x 0.7cm at 5 o'clock position, 3.6 cm from the nipple. This mass may representan invasive component and ultrasound-guided core needle biopsy isrecommended. This was discussed with the patient at the time ofexamination and the patient prefers this biopsy to be performed on thesame day the stereotactic biopsy is scheduled. Left regional siva basins: No suspicious axillary (level I, II & III) orinternal mammary lymphadenopathy is noted. IMPRESSION: 1. Suspicious mass identified in the left breast at 5 o'clock position.Even though stereotactic biopsy has been recommended for calcifications ofthe mammogram, ultrasound-guided biopsy of this mass is recommended torule out an invasive component. 2. No suspicious lymph nodes identified in the left regional nodalbasins. ACR BI-RADS Category: 5. Highly suspicious for malignancy. Ultrasound-guided core needle biopsy of the mass at 5 o'clock position isrecommended. Stereotactic biopsy has been recommended for thecalcifications seen on mammography. Caitlyn Bolanos APRN Tiff US ORDERABLES * (ABNORMAL) Mammography Digital Diagnostic Bilateral with Luis (08/21/2023 1:17 PM LICENSING ANALYST) Anatomical Region Laterality Modality Breast Bilateral Mammography 08/21/2023 3:56 PM LICENSING ANALYST Impressions 08/21/2023 3:56 PM LICENSING ANALYST Calcifications in the left breast are suspicious. Stereotactic biopsy is recommended. BI-RADS Category 4C: Suspicious Abnormality Narrative 08/21/2023 3:56 PM LICENSING ANALYST CLINICAL INDICATION: Patient is a 48 year old female and is seen for additional evaluation requested from prior study MAMMO DIGITAL DIAGNOSTIC BILATERAL W LUIS Digital Mammogram evaluated with Computer Aided Detection (CAD). COMPARISON: The present examination has been compared to prior imaging studies performed at an outside location on 12/26/2017, 03/24/2019, 12/11/2022 and 12/25/2022. FINDINGS: The breasts are heterogeneously dense, which may obscure small masses. There are fine pleomorphic calcifications measuring 6 x 4 x 3.6 centimeters with segmental distribution in the left breast lower hemisphere at 6 o'clock. The calcifications are 0.8 cm from the inferior skin edge.There are calcifications in the retroareolar region and one calcification is seen in the nipple. This calcification in the nipple is new since previous mammogram. In the right breast, no dominant mass, distortion, or suspicious calcifications are identified. Tomosynthesis performed in CC and MLO projections. Procedure Note Carolyn Mederos MD - 08/21/2023 CLINICAL INDICATION: Patient is a 48 year old female and is seen for additional evaluationrequested from prior study MAMMO DIGITAL DIAGNOSTIC BILATERAL W LUIS Digital Mammogram evaluated with Computer Aided Detection (CAD). COMPARISON: The present examination has been compared to prior imaging studiesperformed at an outside location on 12/26/2017, 03/24/2019, 12/11/2022 and12/25/2022. FINDINGS: The breasts are heterogeneously dense, which may obscure small masses. There are fine pleomorphic calcifications measuring 6 x 4 x 3.6centimeters with segmental distribution in the left breast lower hemisphere at 6 o'clock.The calcifications are 0.8 cm from the inferior skin edge.There arecalcifications in the retroareolar region and one calcification is seen in the nipple.This calcification in the nipple is new since previous mammogram. In the right breast, no dominant mass, distortion, or suspiciouscalcifications are identified. Tomosynthesis performed in CC and MLO projections. IMPRESSION: Calcifications in the left breast are suspicious. Stereotactic biopsy is recommended. BI-RADS Category 4C: Suspicious Abnormality Caitlyn Bolanos APRN IMG MAMMOGRAPHY O RDERABLES * OSI CT Chest (05/30/2023 12:06 PM LICENSING ANALYST) Narrative Systemgenerated, Documentation - 08/10/2023 12:06 PM LICENSING ANALYST Study acquired at another institution. For comparison only. No MD Vasquez originated interpretation requested or available. Romaine Lujan IMG OUTSIDE IMAGE OR DERABLES * OSI MRI Head (05/30/2023 12:05 PM LICENSING ANALYST) Only the most recent of2 resultswithin the time period is included. Narrative Systemgenerated, Documentation - 08/10/2023 12:06 PM LICENSING ANALYST Study acquired at another institution. For comparison only. No MD Pedro originated interpretation requested or available. Romaine Lujan IMG OUTSIDE IMAGE OR DERABLES * OSI CT Sft Tiss Neck (05/29/2023 12:07 PM LICENSING ANALYST) Narrative Systemgenerated, Documentation - 08/10/2023 12:07 PM LICENSING ANALYST Study acquired at another institution. For comparison only. No MD Pedro originated interpretation requested or available. Romaine Ljuan IMG OUTSIDE IMAGE OR DERABLES * OSI CT Brain (05/29/2023 12:07 PM LICENSING ANALYST) Only the most recent of2 resultswithin the time period is included. Narrative Systemgenerated, Documentation - 08/10/2023 12:07 PM LICENSING ANALYST Study acquired at another institution. For comparison only. No MD Pedro originated interpretation requested or available. Romaine Lujan MD IMG OUTSIDE IMAGE OR DERABLES * OSI MAMMOGRAPHY UNILATERAL LEFT (12/25/2022 4:05 PM CDT) Narrative DIANE - 08/13/2023 4:06 PM LICENSING ANALYST Study acquired at another institution. For comparison only. No MD Vasquez originated interpretation requested or available. 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 PCP - General Cancer Prevention 08/09/23 Sarita Kay RN [facility] [place] [address] [email or web address] Intake Nurse Navigator Nursing 09/26/23 Rubina Smith RN [address] [place] [address] [email or web address] Treatment Nurse Navigator Nursing 10/22/23 Fausto Chandler MD [address] [place] [phone] [email or web address] Consulting Physician Radiation Oncology 12/11/23
[2023-12-25 10:00] LABS: SARS-CoV-2 Antigen CONTROL BLUE LINE VIS/BG OK
[2023-12-25] MEDS ORDERED: KETOROLAC 30 MG/ML INJ ONE (10:00)
[2023-12-25 10:01] LABS: SARS-CoV-2 Antigen Rapid Res Positive (Negative)
--- NOTE | 2023-12-25 10:36 | ER ---
Nurse's Notes [facility] Name: Angely Vickers Age: 48 yrs Sex: Female : 1975 Arrival Date: 12/25/2023 Time: 07:48 Bed 12 Private MD: Diagnosis: SARS-associated coronavirus as the cause of diseases classified elsewhere Presentation: 12/24 08:10 Chief complaint: Patient states: she has had a bad headache, sore throat, and cough ap3 since Sunday. Patient states she went to urgent care Sunday and was told she had a viral infection but reports her symptoms are not improving. patient currently reports her pain as a 15/10 on the pain scale. Coronavirus screen: Client presents with at least one sign or symptom that may indicate coronavirus-19. Ebola Screen: No symptoms or risks identified at this time. Initial Sepsis Screen: Does the patient meet any 2 criteria? HR > 90 bpm. Does the patient have a suspected source of infection? No. Patient's initial sepsis screen is negative. Risk Assessment: Do you want to hurt yourself or someone else? Patient reports no desire to harm self or others. Onset of symptoms was December 23, 2023. 08:10 Method Of Arrival: Ambulatory ap3 08:10 Acuity: PANTERA 3 ap3 Triage Assessment: 08:13 General: Appears uncomfortable, ill, Behavior is calm, cooperative, appropriate for ap3 age. Pain: Complains of pain in head and throat. Neuro: Level of Consciousness is awake, alert, obeys commands, Oriented to person, place, time, situation, Reports headache. Cardiovascular: Patient's skin is warm and dry. Respiratory: Airway is patent Respiratory effort is even, unlabored, Respiratory pattern is regular, symmetrical. METALSMITH: 10:45 LMP N/A - , Not ap3 Historical: - Allergies: 08:12 No Known Allergies; ap3 - Home Meds: 08:12 None [Active]; ap3 - PMHx: 08:12 brest cancer; ap3 - Immunization history:: Client reports having NOT received the Covid vaccine. - Infectious Disease History:: Denies. - Social history:: Smoking status: Patient denies any tobacco usage or history of. - Family history:: not pertinent. - Hospitalizations: : No recent hospitalization is reported. Screenin:14 Abuse screen: Denies threats or abuse. Nutritional screening: No deficits noted. ap3 Tuberculosis screening: No symptoms or risk factors identified. 10:44 [facility] ED Fall Risk Assessment (Adult) History of falling in the last 3 months, ap3 including since admission No falls in past 3 months (0 pts) Confusion or Disorientation No (0 pts) Intoxicated or Sedated No (0 pts) Impaired Gait No (0 pts) Mobility Assist Device Used No (0 pt) Altered Elimination No (0 pt) Score/Fall Risk Level 0 - 2 = Low Risk Oriented to surroundings, Maintained a safe environment, Educated pt \T\ family on fall prevention, incl call for assistance when getting out of bed, Assessed \T\ reinforced patient's understanding of fall precautions, Provided non-skid footwear, Hourly rounding (assess needs \T\ fall precautionary measures) done, Used ambulatory aids as needed (educated on \T\ assisted with), Used gait belt as appropriate. Vital Signs: 08:10 BP 101 / 64; Pulse 97; Resp 17; Temp 97.8; Pulse Ox 100% ; Weight 46.27 kg; Height 5 ap3 ft. 0 in. ; Pain 10/10; 08:10 Body Mass Index 19.92 (46.27 kg, 152.4 cm) ap3 08:10 Pain Scale: Adult ap3 [place] Coma Score: 10:35 Eye Response: spontaneous(4). Motor Response: obeys commands(6). Verbal Response: rn oriented(5). Total: 15. ED Course: 08:09 Patient arrived in ED. ap3 08:10 Jose E Parekh MD is Attending Physician. rn 08:12 Triage completed. ap3 08:14 Arm band placed on right wrist. ap3 10:44 No provider procedures requiring assistance completed. Patient did not have IV access ap3 during this emergency room visit. 10:45 Patient has correct armband on for positive identification. Adult w/ patient. ap3 10:45 Provided Education on: call light. ap3 Administered Medications: 10:06 Drug: Ketorolac IM 30 mg IM once Route: IM; Site: right vastus lateralis; ap3 10:44 Follow up: Response: No adverse reaction; Pain is decreased ap3 Medication: 10:45 VIS not applicable for this client. ap3 Outcome: 10:36 Discharge ordered by . rn 10:45 Discharged to home ambulatory, with family, ap3 10:45 Condition: good 10:45 Discharge instructions given to patient, Instructed on discharge instructions, follow up and referral plans. Demonstrated understanding of instructions, follow-up care, 10:45 Patient left the ED. ap3 Signatures: Jose E Parekh MD MD rn Caitlyn Ocasio RN RN ap3
--- NOTE | 2023-12-25 10:37 | EDPHYS ---
Physician Documentation [facility] Name: Angely Vickers Age: 48 yrs Sex: Female : 1975 Arrival Date: 12/25/2023 Time: 07:48 Bed 12 Private MD: ED Physician Jose E Parekh HPI: 12/24 09:33 This 48 yrs old Female presents to ER via Ambulatory with complaints of Headache. rn 09:33 The patient complains of pain to the top of head and forehead. Onset: The rn symptoms/episode began/occurred 2 day(s) ago. Severity of symptoms: At its worst the pain was mild, in the emergency department the pain is unchanged. The symptoms are alleviated by nothing. the symptoms are aggravated by lights, noise. The patient has not experienced similar symptoms in the past. Patient reports feeling sick for the last 2 days, illness began Sunday with headache, cough, congestion, sore throat. Seen at urgent care and diagnosed with viral illness. States not better and headache still present so came in for evaluation. No neck stiffness. No history of aneurysm or intracranial hemorrhage.. 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 - Infectious Disease History:: Denies. - Social history:: Smoking status: Patient denies any tobacco usage or history of. - Family history:: not pertinent. - Hospitalizations: : No recent hospitalization is reported. ROS: 09:33 Constitutional: Negative for fever, chills, and weight loss, ENT: Positive for rn congestion and sore throat Neck: Negative for injury, pain, and swelling, Cardiovascular: Negative for chest pain, palpitations, and edema, Respiratory: Positive for cough Abdomen/GI: Negative for abdominal pain, nausea, vomiting, diarrhea, and constipation, MS/Extremity: Negative for injury and deformity, Skin: Negative for injury, rash, and discoloration, Neuro: Positive for headache Exam: 09:33 Constitutional: This is a well developed, well nourished patient who is awake, alert, rn and in no acute distress. ENT: Mild pharyngeal erythema, no exudate or stridor. Neck: Trachea midline, no masses palpated, and no cervical lymphadenopathy. Supple, full range of motion without nuchal rigidity, or vertebral point tenderness. No Meningismus. Cardiovascular: Regular rate and rhythm. No pulse deficits. Respiratory: No increased work of breathing, no retractions or nasal flaring. Neuro: Awake and alert, GCS 15 Vital Signs: 08:10 BP 101 / 64; Pulse 97; Resp 17; Temp 97.8; Pulse Ox 100% ; Weight 46.27 kg; Height 5 ap3 ft. 0 in. ; Pain 10; 08:10 Body Mass Index 19.92 (46.27 kg, 152.4 cm) ap3 08:10 Pain Scale: Adult ap3 [place] Coma Score: 10:35 Eye Response: spontaneous(4). Motor Response: obeys commands(6). Verbal Response: rn oriented(5). Total: 15. MDM: 08:10 Patient medically screened. rn 10:35 Differential diagnosis: migraine, Viral illness, COVID. Data reviewed: vital signs, rn nurses notes, lab test result(s), and as a result, I will discharge patient. Counseling: I had a detailed discussion with the patient and/or guardian regarding the historical points, exam findings, and any diagnostic results supporting the discharge/admit diagnosis, lab results, the need for outpatient follow up, to return to the emergency department if symptoms worsen or persist or if there are any questions or concerns that arise at home. Special discussion: I discussed with the patient/guardian in detail that at this point there is no indication for admission to the hospital. It is understood, however, that if the symptoms persist or worsen the patient needs to return immediately for re-evaluation. 12/24 08:17 Order name: SARS RAPID; Complete Time: 10:26 rn 12/24 08:17 Order name: Strep rn 12/24 10:03 Order name: Throat Culture EDMS Administered Medications: 10:06 Drug: Ketorolac IM 30 mg IM once Route: IM; Site: right vastus lateralis; ap3 10:44 Follow up: Response: No adverse reaction; Pain is decreased ap3 Disposition Summary: 12/25/23 10:36 Discharge Ordered Notes: Location: Home rn Problem: new rn Symptoms: have improved rn Condition: Stable rn Diagnosis - SARS-associated coronavirus as the cause of diseases classified elsewhere rn Followup: rn - With: Private Physician - When: As needed - Reason: Recheck today's complaints, Re-evaluation by your physician Discharge Instructions: - Discharge Summary Sheet rn - COVID-19 rn - 10 Things You Can Do to Manage Your COVID-19 Symptoms at Home - [facility] (12/31/2020) rn - Viral Illness, Adult rn Forms: - Medication Reconciliation Form rn - Antibiotic acetylene burner - Prescription Opioid Use rn - Patient Portal Instructions rn - Leadership Thank You Letter rn Signatures: Dispatcher [employer] Jose E Walden MD MD rn Caitlyn Ocasio RN RN ap3
[2023-12-25 11:15] VITALS: BP 101/64; TEMP 97.8; O2SAT 100
== END 2023-12-25 10:45 | disposition home or self-care (01) ==
LOC: ER 07:48
DX: U07.1 COVID-19 (principal); Z85.3 Personal history of malignant neoplasm of breast
CPT/HCPCS: 36415; 87070; 87081; 87811; 96372; 99284